=== PATIENT | female | born 1985 | race Caucasian/White ===

== ENCOUNTER 2018-11-11 20:17 | Emergency (ER) | payer OTHER ==
[~2018-11-11] VITALS: Ht 162.6 cm; Wt 108.9 kg
[2018-11-11 20:31] VITALS: BP 143/70
--- NOTE | 2018-11-11 20:41 | NUR ---
PT TRIAGED, SENT TO LOBBY AWAITING BED
--- NOTE | 2018-11-11 21:43 | NUR ---
PT AMBULATED TO BED 3
[2018-11-11 21:44] LABS: APPEARANCE,URINE CLEAR (CLEAR); BILIRUBIN,URINE NEGATIVE (NEGATIVE); BLOOD, URINE 2+ (NEGATIVE); COLOR,URINE YELLOW (YELLOW); LEUKOCYTE ESTERASE ,URINE NEGATIVE (NEGATIVE); NITRITE, URINE NEGATIVE (NEGATIVE); UGLUCOSE NEGATIVE (NEGATIVE)
--- NOTE | 2018-11-11 21:50 | NUR ---
PT PRESENTS TO THE ED WITH C/O INTERMITTENT DIFFUSED ABD PAIN. PATIENT REPORTS HAVING DIARRHEA X3 DAYS. DENIES NAUSEA OR VOMITING. PT HAS DRY COUGH. PER PATIENT SHE HAS HAD THE COUGH FOR WEEKS. PT ON ROOM AIR. NO SOB AT THIS TIME. HYPOACTIVE BOWEL SOUNDS NOTED. NO TENDERNESSS WITH PALPATION. HX: CHOLECYSTECTOMY, ECTOPIC , POLYCYSTIC OVARIAN SYNDROME, ASTHMA
[2018-11-11 22:04] LABS: RBC,URINE 0-5 /HPF (0-5); WBC,URINE 0-5 /HPF (0-5)
[2018-11-11 22:10] LABS: BASOPHILS % (AUTO) 0.5 % (0.0-2.0); HEMATOCRIT 39.9 % (36-48); HEMOGLOBIN 13.3 g/dL (12.0-16.0); LYMPHOCYTES % (AUTO) 24.6 % (20.5-51.1); MEAN CORPUSCULAR HEMOGLOBIN 28 pg (27-31); MEAN CORPUSCULAR HGB CONC 33 g/dL (33-37); MEAN CORPUSCULAR VOLUME 84.2 fL (80-94); MONOCYTES # (AUTO) 0.5 K/uL (0.8-1.0); MONOCYTES % (AUTO) 6.4 % (1.7-9.3); NEUTROPHILS # (AUTO) 5.7 K/uL (1.8-7.7); NEUTROPHILS % (AUTO) 68.5 % (42.2-75.2); PLATELET COUNT (AUTO) 236 K/uL (140-450); RED BLOOD CELL COUNT(AUTO) 4.75 MIL/uL (4.20-5.40); RED CELL DISTRIBUTION WIDTH 14.7 % (11.6-13.7); WHITE BLOOD COUNT (AUTO) 8.3 K/uL (4.8-10.8)
[2018-11-11 22:20] LABS: ANION GAP 14.4 (8-16); CARBON DIOXIDE 23.7 mmol/L (21-32); CREATININE 0.9 mg/dL (0.6-1.3); POTASSIUM 3.1 mmol/L (3.5-5.1)
[2018-11-11 22:27] LABS: ALBUMIN 3.6 g/dL (3.4-5.0); TOTAL BILIRUBIN 0.4 mg/dL (0.0-1.0)
[2018-11-11] MEDS ORDERED: POTASSIUM CHLORIDE 10 MEQ TABER PO ONE (22:45)
[2018-11-11] MEDS ORDERED: ONDANSETRON 4 MG/2 ML VIAL IVP ONE (22:45)
[2018-11-11] MEDS ORDERED: PANTOPRAZOLE 40 MG INJ VIAL IVP ONE (22:45)
[2018-11-12 00:01] VITALS: BP 115/67
--- NOTE | 2018-11-12 00:01 | NUR ---
Patient discharged with v/s stable. Written and verbal after care instructions given and explained. Patient alert, oriented and verbalized understanding of instructions. Ambulatory with steady gait. All questions addressed prior to discharge. ID band removed. Patient advised to follow up with PMD. Rx of LOPERAMIDE AND PROTONIX given. Patient educated on indication of medication including possible reaction and side effects. Opportunity to ask questions provided and answered.
== END 2018-11-12 00:01 | disposition home or self-care (01) ==
LOC: MED 20:17
DX: K52.9 Noninfective gastroenteritis and colitis, unspecified (principal); E87.6 Hypokalemia; J45.909 Unspecified asthma, uncomplicated; Z90.49 Acquired absence of other specified parts of digestive tract
CPT/HCPCS: 36415; 80053; 81001; 81025; 83690; 85025; 96374; 96375; 99283; C9113; J2405

== ENCOUNTER 2020-06-17 18:55 | Emergency (ER) | payer OTHER ==
[~2020-06-17] VITALS: Ht 162.6 cm; Wt 119.5 kg
[2020-06-17 19:14] VITALS: BP 172/81
--- NOTE | 2020-06-17 19:26 | NUR ---
PT AMBULATED WITH STEADY GAIT TO BED 5, PT PROVIDED UA SAMPLE AT THIS TIME.
[2020-06-17] MEDS ORDERED: HYDROcodone/APAP 5/325 MG 1 TAB TAB PO ONE (20:00)
[2020-06-17] MEDS ORDERED: KETOROLAC 30 MG/ML VIAL IM ONE (20:00)
[2020-06-17 20:32] LABS: BASOPHILS # (AUTO) 0.1 K/uL (0.00-0.22); BASOPHILS % (AUTO) 0.9 % (0.0-2.0); EOSINOPHILS # (AUTO) 0.1 K/uL (0-0.4); EOSINOPHILS % (AUTO) 0.7 % (0.0-4.0); HEMATOCRIT 37.8 % (36-48); HEMOGLOBIN 12.5 g/dL (12.0-16.0); LYMPHOCYTES # (AUTO) 3.5 K/uL (2.5-16.5); LYMPHOCYTES % (AUTO) 33.9 % (20.5-51.1); MEAN CORPUSCULAR HEMOGLOBIN 28 pg (27-31); MEAN CORPUSCULAR HGB CONC 33 g/dL (33-37); MONOCYTES # (AUTO) 0.6 K/uL (0.8-1.0); MONOCYTES % (AUTO) 6.2 % (1.7-9.3); NEUTROPHILS % (AUTO) 58.3 % (42.2-75.2); PLATELET COUNT (AUTO) 327 K/uL (140-450); RED CELL DISTRIBUTION WIDTH 14.7 % (11.6-13.7); WHITE BLOOD COUNT (AUTO) 10.3 K/uL (4.8-10.8)
--- NOTE | 2020-06-17 20:34 | NUR ---
US IN PROGRESS
[2020-06-17 20:36] LABS: APPEARANCE,URINE CLEAR (CLEAR); BILIRUBIN,URINE NEGATIVE (NEGATIVE); BLOOD, URINE NEGATIVE (NEGATIVE); COLOR,URINE YELLOW (YELLOW); LEUKOCYTE ESTERASE ,URINE NEGATIVE (NEGATIVE); NITRITE, URINE NEGATIVE (NEGATIVE); UGLUCOSE NEGATIVE (NEGATIVE)
[2020-06-17 20:40] LABS: ALBUMIN 3.8 g/dL (3.4-5.0); ANION GAP 14.7 (8-16); CARBON DIOXIDE 30.2 mmol/L (21-32); CREATININE 0.7 mg/dL (0.6-1.3); POTASSIUM 3.9 mmol/L (3.5-5.1); TOTAL BILIRUBIN 0.3 mg/dL (0.0-1.0)
[2020-06-17] MEDS ORDERED: fentaNYL citrate 0.05 MG/ML VIAL NS ONE (21:55)
--- NOTE | 2020-06-17 22:00 | NUR ---
RESTING MORE COMFORTABLY AT PRESENT
[2020-06-17] MEDS ORDERED: NAPR-54 PO (22:34)
[2020-06-17] MEDS ORDERED: ACET-8386 PO (22:34)
[2020-06-17 22:45] VITALS: BP 148/76
--- NOTE | 2020-06-17 22:45 | NUR ---
EXAM RESULTS HAVE BEEN RETURNED AND REVIEWED. READY FOR DISCHARGEPatient discharged with v/s stable. Written and verbal after care instructions given and explained. Patient alert, oriented and verbalized understanding of instructions. Ambulatory with steady gait. All questions addressed prior to discharge. ID band removed. Patient advised to follow up with PMD. Rx of NAPROSYN, HYDROCODONE given. Patient educated on indication of medication including possible reaction and side effects. Opportunity to ask questions provided and answered.
== END 2020-06-17 22:45 | disposition home or self-care (01) ==
LOC: MED 18:55
DX: O26.891 Other specified pregnancy related conditions, first trimester (principal); R10.2 Pelvic and perineal pain; J45.909 Unspecified asthma, uncomplicated; Z90.49 Acquired absence of other specified parts of digestive tract; Z3A.01 Less than 8 weeks gestation of pregnancy
CPT/HCPCS: 36415; 73502; 76856; 80053; 81003; 81025; 85025; 93976; 96372; 99285; J1885; J3010

== ENCOUNTER 2022-05-24 16:17 | Emergency (ER) | payer OTHER ==
[~2022-05-24] VITALS: Ht 162.6 cm; Wt 122.5 kg
[~2022-05-24 16:17] MED LIST: ACET-8905 PO; NAPR-54 PO
[2022-05-24 16:25] VITALS: BP 151/101
--- NOTE | 2022-05-24 16:42 | NUR ---
ASSUMED PATIENT CARE, NURSING ASSESSMENT COMPLETED.
[2022-05-24] MEDS ORDERED: ACETAMINOPHEN EXTRA STRENGTH 500 MG TAB PO ONE (16:55)
[2022-05-24] MEDS ORDERED: IBUPROFEN 600 MG TAB PO ONE (16:55)
--- NOTE | 2022-05-24 17:18 | NUR ---
SWABS AND URINE SPECOMEN SENT TO LAB.
[2022-05-24 17:23] LABS: APPEARANCE,URINE CLEAR (CLEAR); BILIRUBIN,URINE NEGATIVE (NEGATIVE); BLOOD, URINE TRACE-I (NEGATIVE); COLOR,URINE YELLOW (YELLOW); LEUKOCYTE ESTERASE ,URINE NEGATIVE (NEGATIVE); NITRITE, URINE NEGATIVE (NEGATIVE); PH,URINE 7.5 (5.0-9.0); UGLUCOSE NEGATIVE (NEGATIVE)
[2022-05-24 17:38] LABS: WBC,URINE 0-5 /HPF (0-5)
[2022-05-24 17:44] LABS: BASOPHILS % (AUTO) 0.4 % (0.0-2.0); EOSINOPHILS # (AUTO) 0.1 K/uL (0-0.4); HEMATOCRIT 36.7 % (36-48); HEMOGLOBIN 11.9 g/dL (12.0-16.0); LYMPHOCYTES # (AUTO) 1.2 K/uL (2.5-16.5); MEAN CORPUSCULAR HEMOGLOBIN 25 pg (27-31); MEAN CORPUSCULAR HGB CONC 33 g/dL (33-37); MEAN CORPUSCULAR VOLUME 76.2 fL (80-94); MONOCYTES # (AUTO) 0.8 K/uL (0.8-1.0); MONOCYTES % (AUTO) 9.2 % (1.7-9.3); NEUTROPHILS # (AUTO) 6.4 K/uL (1.8-7.7); NEUTROPHILS % (AUTO) 75.4 % (42.2-75.2); PLATELET COUNT (AUTO) 302 K/uL (140-450); RED BLOOD CELL COUNT(AUTO) 4.82 MIL/uL (4.20-5.40); RED CELL DISTRIBUTION WIDTH 15.9 % (11.6-13.7); WHITE BLOOD COUNT (AUTO) 8.5 K/uL (4.8-10.8)
[2022-05-24 18:07] LABS: ALBUMIN 4.2 g/dL (3.4-5.0); ANION GAP 14.9 (8-16); CARBON DIOXIDE 24.7 mmol/L (21-32); CREATININE 0.8 mg/dL (0.6-1.3); POTASSIUM 3.6 mmol/L (3.5-5.1); TOTAL BILIRUBIN 0.4 mg/dL (0.0-1.0)
[2022-05-24] MEDS ORDERED: IBUP-2213 PO (18:12)
[2022-05-24] MEDS ORDERED: ACET-10509 PO (18:12)
[2022-05-24] MEDS ORDERED: AMOX1TAB8 PO (18:12)
--- NOTE | 2022-05-24 18:21 | NUR ---
DISPO AND MEDICAL DECISION MAKING, DC HOME WITH E-RX AND AFTERCARE INSTRUCTIONS FOR PNEUMONIA, INSTRUCTIONS ACKNOWLEDGED AND UNDERSTOOD BY PATIENT WELL. DC HOME AMBULATORY, VS WNL, TEMP DOWN TO 100.9 FROM 103.1.
[2022-05-24 18:22] VITALS: BP 135/89
== END 2022-05-24 18:21 | disposition home or self-care (01) ==
LOC: MED 16:17
DX: R50.9 Fever, unspecified (principal); Z20.822 Contact with and (suspected) exposure to COVID-19; R05.9 Cough, unspecified; J45.909 Unspecified asthma, uncomplicated; K21.9 Gastro-esophageal reflux disease without esophagitis; Z79.899 Other long term (current) drug therapy
CPT/HCPCS: 36415; 71045; 80053; 81001; 81025; 85025; 87426; 87804; 99284; Q0092

== ENCOUNTER 2022-05-26 21:25 | Emergency (ER) | payer OTHER ==
[~2022-05-26] VITALS: Ht 162.6 cm; Wt 126.6 kg
[~2022-05-26 21:25] MED LIST changes: +ACET-10509 PO; +AMOX1TAB8 PO; +IBUP-2213 PO
[2022-05-26 21:50] VITALS: BP 135/70
--- NOTE | 2022-05-26 21:53 | NUR ---
TO LOBBY A/W BED AMBULATORY
--- NOTE | 2022-05-27 00:06 | NUR ---
TO BED 11.
--- NOTE | 2022-05-27 00:06 | NUR ---
PATIENT CALL TO PUT ON BED , NO RESPONSE. PATIENT DOESNT WANT TO WAIT. PATIENT LEFT WITHOUT BEING SEEN BY DR. LOVELL. NO FURTHER CARE PROVIDED FOR PATIENT.
== END 2022-05-27 00:09 | disposition left against medical advice (07) ==
LOC: MED 21:25
DX: R05.9 Cough, unspecified (principal); R06.02 Shortness of breath; R50.9 Fever, unspecified; Z53.21 Procedure and treatment not carried out due to patient leaving prior to being seen by health care provider

== ENCOUNTER 2022-12-28 16:34 | Emergency (ER) | payer OTHER ==
[~2022-12-28] VITALS: Ht 162.6 cm; Wt 90.7 kg
[2022-12-28 16:55] VITALS: BP 138/91; PULSE 89; RESP 18; TEMP 98; O2SAT 98
[2022-12-28] MEDS ORDERED: VALA1TAB40 PO (18:18)
[2022-12-28] MEDS ORDERED: DEXT15DR6 LEFT EYE (18:18)
[2022-12-28] MEDS ORDERED: MINE3.5O26 OP ×2 (18:18→18:24)
[2022-12-28] MEDS ORDERED: PRED20TA5 PO (18:18)
[2022-12-28 18:54] VITALS: BP 133/87; PULSE 87; RESP 18; TEMP 98.1; O2SAT 98
== END 2022-12-28 18:54 | disposition home or self-care (01) ==
LOC: MED 16:34
DX: G51.0 Bell's palsy (principal); K02.9 Dental caries, unspecified; J45.909 Unspecified asthma, uncomplicated; K21.9 Gastro-esophageal reflux disease without esophagitis; Z98.890 Other specified postprocedural states; Z79.899 Other long term (current) drug therapy; Z79.2 Long term (current) use of antibiotics; Z79.1 Long term (current) use of non-steroidal anti-inflammatories (NSAID)
CPT/HCPCS: 99283